=== PATIENT | female | born 1980 | race Caucasian/White ===

== ENCOUNTER 2019-12-31 08:32 | Inpatient (IN) ==
[2019-12-31] MEDS ORDERED: OXYTOCIN 30 UNITS/500 ML BAG IV PRN ×2 (13:13)
[2019-12-31] MEDS ORDERED: PENICILLIN G POTASSIUM 6 MU in DEXTROSE 5% 250 ML IV STA (13:17)
[2019-12-31] MEDS: LACTATED RINGER'S 1,000 ML IV PRN ×2 (13:38→20:21)
--- NOTE | 2019-12-31 13:38 | History & Physical Report ---
Date of Service December 31, 2019 Assessment & Plan (1) Elective induction of labor planned: Plan pitocin induction. arom when indicated. epidural on demand. Fetus category one. Anticipate . History of Present Illness Primary Care Provider: Priya Ramirez DO Patient is a 39yowf with iup at 40 6/7 weeks who presents to labor and delivery for scheduled induction. Patient had nettles bulb placed last night and it fell out this am. Has noted some cramping but nothing more than that. +mucous d/c. no vb. +fm. complicated by ama. Declined genetic testing. echo normal. nsts reactive. labs--A+/ab-/ri/rprnr/hepb-/hiv-/gc/ct-/ 16 week gtt 139/ 16 and 28 week 2 hr gtt nl/gbs positive. Allergies Allergy/AdvReac Type Severity Reaction Status Date / Time mushroom Allergy Mild Gastrointestinal Verified 12/30/19 19:43 Upset Home Medications Home Medications Medication Instructions Recorded Confirmed Type prenat.vits,lukas,jzf-vbow-asyuc 1 tab PO DAILY 05/16/19 12/30/19 History Patient History Medical History Abnormal biochemical finding on screening of mother Supernumerary nipple (Resolved) Varicella Surgical History History of umbilical hernia repair Family History Grandmother (Maternal) Thyroid disease Sister Heart valve disorder Aunt Lazy eye Family/Other Lazy eye Social History Preferred Language: Montenegrin marital status: marital status details: Vincent Gonzalez (35) [phone] Current Living Situation: Spouse Current Living Situation Comment: no pets current occupational status: employed current occupation: bookeeper Feels Safe at Home: Yes Smoking Status: Former smoker Hx Alcohol Use: No Hx Substance Use: No OB History g1--present 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 no stds, no abnl paps Review of Systems All systems reviewed & are unremarkable except as noted in HPI & below Physical Exam Constitutional: WD/WN, vitals as above Gastrointestinal (Abdomen): soft, gravid, nt Psychiatric: A+Ox3, euthymic affect Genitourinary: 4+/50/-2/mid/soft efw--8-9# toco--pau efm--130s with mod variability, accels present, no decels Results & Data Vital Signs (Past 12 Hours) Vital Signs Temp Pulse Resp BP 12/31/19 13:11 36.7 C 92 H 20 119/70 Code Status & VTE Plan VTE Prophylaxis Plan VTE Prophylaxis will be ordered: No Coding Level of Care Code None Diagnoses Elective induction of labor planned
[2019-12-31 13:51] LABS: Hematocrit (blood only) 38.1 % (37-47); Hemoglobin 12.4 g/dL (12.0-16.0); Mean Corpuscular Hemoglobin 29.1 pg (25-34); Mean Corpuscular Volume 89.4 fL (80-100); Mean Platelet Volume 10.4 fL (7.4-10.4); Platelet Count 271 K/uL (130-400); RDW Coefficient of Variation 14.7 % (11.5-14.5); RDW Standard Deviation 48.1 fL (36.4-46.3); Red Blood Count 4.26 M/uL (4.2-5.4); White Blood Count 11.43 K/uL (4.8-10.8)
[2019-12-31 14:02] LABS: Mean Corpuscular Hgb Conc 32.5 g/dL (32-36)
--- NOTE | 2019-12-31 17:13 | Labor Progress Brief Note ---
Date of Service December 31, 2019 Subjective Patient noting contractions but not uncomfortable. Assessment & Plan (1) Elective induction of labor planned: arom done, continue current management. fetus category one. epidural on demand. Physical Exam Constitutional: WD/WN, vitals as above Psychiatric: A+Ox3, euthymic affect Genitourinary: cx--4.5/75/-2 arom--minimal clear toco--q 2-3min, pit at 12 efm--130s with mod variability, accels to 160s , no decels Results & Data Vital Signs (Past 12 Hours) Vital Signs Temp Pulse Resp BP 12/31/19 16:42 68 125/79 12/31/19 15:20 85 20 123/81 12/31/19 14:18 36.7 C 97 H 20 111/82 12/31/19 14:15 97 H 111/82 12/31/19 13:11 36.7 C 92 H 20 119/70 Coding Level of Care Code None Diagnoses Elective induction of labor planned
[2019-12-31] MEDS: PENICILLIN G POTASSIUM 3 MU in DEXTROSE 5% 100 ML IV PRN ×2 (17:45→21:44)
[2019-12-31] MEDS ORDERED: fentaNYL citrate 100 MCG/2 ML VIAL ONE (18:26)
[2019-12-31] MEDS ORDERED: ePHEDrine sulfate 50 MG/ML AMP ONE (18:26)
[2019-12-31] MEDS ORDERED: BUPIVACAINE 0.25% 30 ML VIAL ONE ×2 (18:26→20:14)
[2019-12-31] MEDS ORDERED: fentaNYL 2MCG/ML ROPIV 1.25MG/ML 100 ML BAG EPI ONE (18:27)
[2019-12-31] MEDS ORDERED: NALBUPHINE HCL INJ 10 MG/ML AMP IV PRN (18:38)
[2019-12-31] MEDS ORDERED: NALOXONE HCL 0.4 MG/1 ML VIAL/CARP IV PRN (18:38)
[2019-12-31] MEDS ORDERED: DiphenhydrAMINE HCL 50 MG/ML VIAL IV PRN (18:38)
[2019-12-31] MEDS ORDERED: NALOXONE HCL 1 MG in SODIUM CHLORIDE 0.9% 1000ML 1,000 ML IV PRN (18:38)
[2019-12-31] MEDS ORDERED: fentaNYL 2MCG/ML ROPIV 1.25MG/ML 100 ML BAG EPI PRN (18:38)
[2019-12-31] MEDS ORDERED: ePHEDrine sulfate 50 MG/ML AMP IV PRN (18:38)
[2019-12-31] MEDS ORDERED: ONDANSETRON INJ 2 MG/ML 2 ML VIAL IV PRN (18:38)
--- NOTE | 2019-12-31 18:42 | Anesthesiology Consultation ---
Date of Service December 31, 2019 Assessment & Plan (1) Encounter for pre-operative examination: Chart Review Chart Review: Patient NOT seen in Pre Admission Testing and Acceptable Risk for Labor Epidural Consults Requested none History Height/Weight Height: 5 ft 9 in Weight: 110.677 kg Allergies Allergy/AdvReac Type Severity Reaction Status Date / Time mushroom Allergy Mild Gastrointestinal Verified 12/30/19 19:43 Upset Medications Home Medications Medication Instructions Recorded Confirmed Last Taken prenat.vits,lukas,bpz-rolu-vurmr 1 tab PO DAILY 05/16/19 12/30/19 12/30/19 08:00 Active Medications Generic Name Dose Route Start Last Admin Trade Name Freq PRN Reason Stop Dose Admin Lactated Ringer's 1,000 mls @ 125 mls/hr 12/31/19 13:13 12/31/19 18:30 Lr IV 01/02/20 13:12 999 mls/hr .Q8H PRN Titration L&D Protocol Protocol Penicillin G Potassium 3 mu/ 106 mls @ 100 mls/hr 12/31/19 13:13 12/31/19 17:45 Dextrose IV 01/10/20 13:12 100 mls/hr Q4H PRN Administration Give until delivery Oxytocin 30 units in 500 mls @ 12 mls/hr 12/31/19 13:13 12/31/19 16:40 Pitocin IV 01/02/20 13:12 0.72 units/hr .Q24H PRN 12 mls/hr Labor Induction/Augmentation Titration Protocol 0.72 UNITS/HR Past Medical History Medical History Abnormal biochemical finding on screening of mother Supernumerary nipple (Resolved) Varicella Exercise / Class Metabolic Activity II 4-5 Yardwork/Stairs/Walk up hill Past Family History Family History Grandmother (Maternal) Thyroid disease Sister Heart valve disorder Aunt Lazy eye Family/Other Lazy eye Past Surgical History Surgical History History of umbilical hernia repair Past Anesthesia History No Hx of Anesthesia Complications and No Family Hx of Anesthesia Complications History of PONV No Hx of PONV and No Hx of Motion Sickness Social History Smoking Status: Former smoker Do You Dip or Chew Tobacco: No Smoking End Date: 09-20-2008 Hx Alcohol Use: No Hx Substance Use: No Physical Exam Vital Signs Last Vital Signs Temp 36.7 C 12/31/19 18:41 Pulse 72 12/31/19 18:40 Resp 22 12/31/19 18:41 BP 138/83 12/31/19 18:40 Testing Laboratory Results 12/31/19 13:23
--- NOTE | 2019-12-31 20:08 | Labor Progress Brief Note ---
Date of Service December 31, 2019 Subjective Notes contractions are still painful despite epidural Assessment & Plan (1) Elective induction of labor planned: iupc placed with goal of 200mvus. fetus category one. will get anesthesia to check epidural. Continue pitocin. Physical Exam Constitutional: WD/WN, vitals as above Psychiatric: A+Ox3, euthymic affect Genitourinary: cx--unchanged toco--q2min, pit at 12 efm--120s with mod variability, small accels, no decels Results & Data Vital Signs (Past 12 Hours) Vital Signs Temp Pulse Resp BP Pulse Ox 12/31/19 20:06 74 94 12/31/19 20:02 76 96 12/31/19 19:57 61 95 12/31/19 19:55 58 L 147/89 H 12/31/19 19:52 65 96 12/31/19 19:51 67 93 12/31/19 19:47 62 95 12/31/19 19:44 66 94 12/31/19 19:42 67 95 12/31/19 19:40 18 12/31/19 19:37 71 94 12/31/19 19:36 70 132/77 93 12/31/19 19:32 74 145/85 H 94 12/31/19 19:30 71 18 94 12/31/19 19:27 64 96 12/31/19 19:26 63 143/83 H 12/31/19 19:24 67 146/82 H 94 12/31/19 19:22 36.8 C 71 18 135/78 94 12/31/19 19:19 68 132/79 94 12/31/19 19:18 67 139/81 12/31/19 19:17 65 97 12/31/19 19:16 63 145/89 H 12/31/19 19:14 61 132/82 12/31/19 19:13 68 94 12/31/19 19:12 67 139/82 95 12/31/19 19:10 67 145/86 H 12/31/19 19:08 63 136/82 12/31/19 19:07 64 98 12/31/19 19:05 68 141/84 H 12/31/19 19:03 68 139/79 12/31/19 19:02 87 92 12/31/19 18:57 71 97 12/31/19 18:52 85 97 04/13/20 18:47 73 99 12/31/19 18:42 71 100 12/31/19 18:41 36.7 C 22 12/31/19 18:40 72 138/83 12/31/19 17:49 66 20 147/79 H 12/31/19 16:42 68 125/79 12/31/19 15:20 85 20 123/81 12/31/19 14:18 36.7 C 97 H 20 111/82 12/31/19 14:15 97 H 111/82 12/31/19 13:11 36.7 C 92 H 20 119/70 Coding Level of Care Code None Diagnoses Elective induction of labor planned
--- NOTE | 2019-12-31 23:52 | Labor Progress Brief Note ---
Date of Service December 31, 2019 Subjective comfortable with new epidural. Feels some pressure with contractions. Assessment & Plan (1) Elective induction of labor planned: continue current plan. fetus overall reassuring Category two. Physical Exam Constitutional: WD/WN, vitals as above Gastrointestinal (Abdomen): gravid Psychiatric: A+Ox3, euthymic affect Genitourinary: cx--5/100/-1 toco--q2-3min, pit at 14, mvus have been >200 since iupc placed efm--125 with mod variability, small accels, variable/early with some contractions Results & Data Vital Signs (Past 12 Hours) Vital Signs Temp Pulse Resp BP Pulse Ox 12/31/19 23:47 73 95 12/31/19 23:43 72 93 12/31/19 23:42 83 95 12/31/19 23:37 73 91 12/31/19 23:34 70 117/57 L 12/31/19 23:32 75 93 12/31/19 23:27 83 93 12/31/19 23:22 80 93 12/31/19 23:19 73 94 12/31/19 23:18 77 109/60 12/31/19 23:17 73 93 12/31/19 23:13 73 94 12/31/19 23:12 77 93 12/31/19 23:07 82 93 12/31/19 23:03 90 135/72 94 12/31/19 23:02 83 93 12/31/19 23:00 36.9 C 18 12/31/19 22:57 83 93 12/31/19 22:52 63 91 12/31/19 22:49 65 97/54 L 12/31/19 22:47 70 92 12/31/19 22:42 61 92 12/31/19 22:37 81 92 12/31/19 22:33 70 100/56 L 12/31/19 22:32 83 91 12/31/19 22:27 64 93 12/31/19 22:22 79 92 12/31/19 22:19 66 109/55 L 12/31/19 22:18 66 94 12/31/19 22:17 67 93 12/31/19 22:12 65 93 12/31/19 22:08 70 94 12/31/19 22:07 68 93 12/31/19 22:04 63 120/58 L 12/31/19 22:03 70 94 12/31/19 22:02 84 93 12/31/19 21:57 65 93 12/31/19 21:54 65 94 12/31/19 21:52 69 96 12/31/19 21:49 68 110/53 L 12/31/19 21:47 71 95 12/31/19 21:42 74 97 12/31/19 21:37 67 95 12/31/19 21:34 68 120/57 L 12/31/19 21:32 65 96 12/31/19 21:27 67 95 12/31/19 21:22 72 96 12/31/19 21:17 87 96 12/31/19 21:16 16 12/31/19 21:12 78 95 12/31/19 21:10 82 20 118/59 L 12/31/19 21:07 36.8 C 73 18 94 12/31/19 21:06 78 18 119/55 L 12/31/19 21:03 77 92 12/31/19 21:02 81 98 12/31/19 21:01 86 135/79 12/31/19 20:57 86 92 12/31/19 20:52 79 93 12/31/19 20:51 77 20 149/68 H 12/31/19 20:47 76 94 12/31/19 20:45 67 20 132/78 12/31/19 20:42 72 96 12/31/19 20:41 75 94 12/31/19 20:39 78 128/64 12/31/19 20:37 77 141/66 H 96 12/31/19 20:35 71 147/75 H 12/31/19 20:33 78 18 157/73 H 12/31/19 20:32 66 95 12/31/19 20:31 70 129/79 12/31/19 20:29 71 131/83 12/31/19 20:28 69 94 12/31/19 20:27 69 129/81 96 12/31/19 20:25 71 139/85 12/31/19 20:23 66 149/92 H 94 12/31/19 20:22 70 94 12/31/19 20:21 67 22 150/91 H 12/31/19 20:19 71 144/91 H 12/31/19 20:17 65 97 12/31/19 20:12 64 97 12/31/19 20:08 68 135/79 12/31/19 20:07 66 95 12/31/19 20:06 74 94 12/31/19 20:02 76 96 12/31/19 19:57 61 95 12/31/19 19:55 58 L 147/89 H 12/31/19 19:52 65 96 12/31/19 19:51 67 93 12/31/19 19:47 62 95 12/31/19 19:44 66 94 12/31/19 19:42 67 95 12/31/19 19:40 18 12/31/19 19:37 71 94 12/31/19 19:36 70 132/77 93 12/31/19 19:32 74 145/85 H 94 12/31/19 19:30 71 18 94 12/31/19 19:27 64 96 12/31/19 19:26 63 143/83 H 12/31/19 19:24 67 146/82 H 94 12/31/19 19:22 36.8 C 71 18 135/78 94 12/31/19 19:19 68 132/79 94 12/31/19 19:18 67 139/81 12/31/19 19:17 65 97 12/31/19 19:16 63 145/89 H 12/31/19 19:14 61 132/82 12/31/19 19:13 68 94 12/31/19 19:12 67 139/82 95 12/31/19 19:10 67 145/86 H 12/31/19 19:08 63 136/82 12/31/19 19:07 64 98 12/31/19 19:05 68 141/84 H 12/31/19 19:03 68 139/79 12/31/19 19:02 87 92 12/31/19 18:57 71 97 12/31/19 18:52 85 97 12/31/19 18:47 73 99 12/31/19 18:42 71 100 12/31/19 18:41 36.7 C 22 12/31/19 18:40 72 138/83 12/31/19 17:49 66 20 147/79 H 12/31/19 16:42 68 125/79 12/31/19 15:20 85 20 123/81 12/31/19 14:18 36.7 C 97 H 20 111/82 12/31/19 14:15 97 H 111/82 12/31/19 13:11 36.7 C 92 H 20 119/70 Coding Level of Care Code None Diagnoses Elective induction of labor planned
[2020-01-01] MEDS: PENICILLIN G POTASSIUM 3 MU in DEXTROSE 5% 100 ML IV PRN (01:42)
--- NOTE | 2020-01-01 02:11 | Labor Progress Brief Note ---
Date of Service January 01, 2020 Subjective Patient notes she feels some pressure and is very shaky. Assessment & Plan (1) Elective induction of labor planned: Will try to labor down now but if unable to tolerate this because of the shaking. Will attempt. Otherwise can begin second stage. Fetus reassuring. anticipate . Physical Exam Constitutional: WD/WN, vitals as above Psychiatric: A+Ox3, euthymic affect Genitourinary: cx--c/c/0 toco--q 2-3 min, pit at 14 efm--130s with mod variability, accels to 150s, no decels Results & Data Vital Signs (Past 12 Hours) Vital Signs Temp Pulse Resp BP Pulse Ox 01/01/20 02:07 96 H 95 01/01/20 02:03 94 H 144/71 H 01/01/20 02:02 93 H 98 01/01/20 01:57 98 H 98 01/01/20 01:52 100 H 98 01/01/20 01:48 115/59 L 01/01/20 01:47 112 H 98 01/01/20 01:42 81 98 01/01/20 01:37 69 99 01/01/20 01:33 73 110/59 L 01/01/20 01:32 82 97 01/01/20 01:27 66 96 01/01/20 01:22 74 97 01/01/20 01:19 63 115/63 01/01/20 01:17 73 96 01/01/20 01:14 18 01/01/20 01:12 87 96 01/01/20 01:10 62 93 01/01/20 01:07 74 94 01/01/20 01:05 74 94 01/01/20 01:03 76 126/73 01/01/20 01:02 67 95 01/01/20 00:59 97 H 93 01/01/20 00:57 68 94 01/01/20 00:52 78 93 01/01/20 00:50 69 93 01/01/20 00:48 73 128/78 01/01/20 00:47 69 93 01/01/20 00:44 69 94 01/01/20 00:42 36.8 C 71 18 95 01/01/20 00:38 87 94 01/01/20 00:37 78 97 01/01/20 00:33 67 116/71 01/01/20 00:32 67 96 01/01/20 00:30 71 94 01/01/20 00:27 74 95 01/01/20 00:23 79 94 01/01/20 00:22 69 94 01/01/20 00:18 72 122/66 94 01/01/20 00:17 67 96 01/01/20 00:12 75 94 01/01/20 00:07 70 94 01/01/20 00:06 96 H 94 01/01/20 00:03 67 117/58 L 01/01/20 00:02 67 94 12/31/19 23:58 73 94 12/31/19 23:57 74 94 12/31/19 23:52 72 94 12/31/19 23:49 84 118/58 L 94 12/31/19 23:47 73 95 12/31/19 23:43 72 93 12/31/19 23:42 83 95 12/31/19 23:37 73 91 12/31/19 23:34 70 117/57 L 12/31/19 23:32 75 93 12/31/19 23:27 83 93 12/31/19 23:22 80 93 12/31/19 23:19 73 94 12/31/19 23:18 77 109/60 12/31/19 23:17 73 93 12/31/19 23:13 73 94 12/31/19 23:12 77 93 12/31/19 23:07 82 93 12/31/19 23:03 90 135/72 94 12/31/19 23:02 83 93 12/31/19 23:00 36.9 C 18 12/31/19 22:57 83 93 12/31/19 22:52 63 91 12/31/19 22:49 65 97/54 L 12/31/19 22:47 70 92 12/31/19 22:42 61 92 12/31/19 22:37 81 92 12/31/19 22:33 70 100/56 L 12/31/19 22:32 83 91 12/31/19 22:27 64 93 12/31/19 22:22 79 92 12/31/19 22:19 66 109/55 L 12/31/19 22:18 66 94 12/31/19 22:17 67 93 12/31/19 22:12 65 93 12/31/19 22:08 70 94 12/31/19 22:07 68 93 12/31/19 22:04 63 120/58 L 12/31/19 22:03 70 94 12/31/19 22:02 84 93 12/31/19 21:57 65 93 12/31/19 21:54 65 94 12/31/19 21:52 69 96 12/31/19 21:49 68 110/53 L 12/31/19 21:47 71 95 12/31/19 21:42 74 97 12/31/19 21:37 67 95 12/31/19 21:34 68 120/57 L 12/31/19 21:32 65 96 12/31/19 21:27 67 95 12/31/19 21:22 72 96 12/31/19 21:17 87 96 12/31/19 21:16 16 12/31/19 21:12 78 95 12/31/19 21:10 82 20 118/59 L 12/31/19 21:07 36.8 C 73 18 94 12/31/19 21:06 78 18 119/55 L 12/31/19 21:03 77 92 12/31/19 21:02 81 98 12/31/19 21:01 86 135/79 12/31/19 20:57 86 92 12/31/19 20:52 79 93 12/31/19 20:51 77 20 149/68 H 12/31/19 20:47 76 94 12/31/19 20:45 67 20 132/78 12/31/19 20:42 72 96 12/31/19 20:41 75 94 12/31/19 20:39 78 128/64 12/31/19 20:37 77 141/66 H 96 12/31/19 20:35 71 147/75 H 12/31/19 20:33 78 18 157/73 H 12/31/19 20:32 66 95 12/31/19 20:31 70 129/79 12/31/19 20:29 71 131/83 12/31/19 20:28 69 94 12/31/19 20:27 69 129/81 96 12/31/19 20:25 71 139/85 12/31/19 20:23 66 149/92 H 94 12/31/19 20:22 70 94 0413/20 20:21 67 22 150/91 H 12/31/19 20:19 71 144/91 H 12/31/19 20:17 65 97 12/31/19 20:12 64 97 12/31/19 20:08 68 135/79 12/31/19 20:07 66 95 12/31/19 20:06 74 94 12/31/19 20:02 76 96 12/31/19 19:57 61 95 12/31/19 19:55 58 L 147/89 H 12/31/19 19:52 65 96 12/31/19 19:51 67 93 12/31/19 19:47 62 95 12/31/19 19:44 66 94 12/31/19 19:42 67 95 12/31/19 19:40 18 12/31/19 19:37 71 94 12/31/19 19:36 70 132/77 93 12/31/19 19:32 74 145/85 H 94 12/31/19 19:30 71 18 94 12/31/19 19:27 64 96 12/31/19 19:26 63 143/83 H 12/31/19 19:24 67 146/82 H 94 12/31/19 19:22 36.8 C 71 18 135/78 94 12/31/19 19:19 68 132/79 94 12/31/19 19:18 67 139/81 12/31/19 19:17 65 97 12/31/19 19:16 63 145/89 H 12/31/19 19:14 61 132/82 12/31/19 19:13 68 94 12/31/19 19:12 67 139/82 95 12/31/19 19:10 67 145/86 H 12/31/19 19:08 63 136/82 12/31/19 19:07 64 98 12/31/19 19:05 68 141/84 H 12/31/19 19:03 68 139/79 12/31/19 19:02 87 92 12/31/19 18:57 71 97 12/31/19 18:52 85 97 12/31/19 18:47 73 99 12/31/19 18:42 71 100 12/31/19 18:41 36.7 C 22 12/31/19 18:40 72 138/83 12/31/19 17:49 66 20 147/79 H 12/31/19 16:42 68 125/79 12/31/19 15:20 85 20 123/81 12/31/19 14:18 36.7 C 97 H 20 111/82 12/31/19 14:15 97 H 111/82 Coding Level of Care Code None Diagnoses Elective induction of labor planned
--- NOTE | 2020-01-01 05:19 | Delivery Summary ---
Vaginal Delivery Summary Date of Service January 01, 2020 Pre-operative Diagnosis: at 41 weeks postdates induction Post-operative Diagnosis: same Procedure: pitocin induction arom iupc first degree laceration and repair EBL: 400cc Anesthesia: epidural Procedure: The patient pushed for about one hour to deliver a viable female infant in DOP position. The nose and mouth were bulb suctioned on the perineum and the rest of the was then delivered without difficulty. The baby was vigorous. The nose and mouth were again bulb suctioned and the was placed in the maternal abdomen for drying and attention. Cord was clamped and cut at 30 secs of life. Cord blood obtained for public collection. Placenta delivered spontaneous, intact with a three vessel cord. Cervix/sulci/rectum were intact. A first degree perineal laceration was repaired in the normal standard fashion. Hemostasis obtained with dilute pitocin and fundal massage. Apgars were 8/9. Mother and baby doing well at the end of the delivery. [facility] Vaginal Delivery Charge Vaginal Delivery Codes: 48976 global code for the antepartum, delivery, and post- (also cord blood for public collection)
[2020-01-01] MEDS ORDERED: ACETAMINOPHEN W/CODEINE #3 1 TAB PO PRN (05:22)
[2020-01-01] MEDS ORDERED: ACETAMINOPHEN 325 MG TAB PO PRN (05:22)
[2020-01-01] MEDS ORDERED: OXYTOCIN 30 UNITS/500 ML BAG IV PRN (05:33)
[2020-01-01] MEDS ORDERED: DIPHTHERIA/TETANUS/PERTUSSIS 0.5 ML SYR/VIAL IM ONE (05:33)
[2020-01-01] MEDS ORDERED: BENZOCAINE 20% AER SPR 82.5 GM CAN EXT PRN (05:33)
[2020-01-01] MEDS ORDERED: HYDROCORTISONE ACETATE 25 MG SUPP PR PRN (05:33)
[2020-01-01] MEDS ORDERED: SUPERCREAM 0.870% 15 GM JAR EXT PRN (05:33)
--- NOTE | 2020-01-01 07:44 | Anesthesia Procedure Note ---
Date of Service January 01, 2020 Anesthesia Post Epidural Note Vital Signs Vital Signs: Temp Pulse Resp BP Pulse Ox 36.7 C 97 H 20 122/67 92 01/01/20 07:10 01/01/20 07:09 01/01/20 07:10 01/01/20 07:09 01/01/20 05:18 Pain Intensity Abdomen: Pain Intensity: 9 Notes Mental Status: alert / awake / arousable Nausea / Vomiting: adequately controlled Pain: adequately controlled Airway Patency, RR, SpO2: stable & adequate BP & HR: stable & adequate Hydration State: stable & adequate Neuraxial Anesthesia: was administered and sensory block is resolving Anesthetic Complications: no major complications apparent and Pt Satisfied with anesthetic care Epidural: Removed without complications and With tip intact
[2020-01-01] MEDS: PRENATAL VITAMIN 1 TAB PO SCH (08:29)
[2020-01-01] MEDS: DOCUSATE SODIUM 100 MG CAP PO SCH ×2 (08:29→19:57)
[2020-01-01] MEDS: IBUPROFEN 600 MG TAB PO PRN ×2 (09:32→19:57)
[2020-01-02 06:56] LABS: Hematocrit (blood only) 33.8 % (37-47); Hemoglobin 10.6 g/dL (12.0-16.0)
--- NOTE | 2020-01-02 07:34 | Obstetrical Progress Note ---
Date of Service January 02, 2020 Assessment & Plan (1) Encounter for care and examination after delivery: satisfactory course would like to be discharged today if baby discharged Day #:: 1 Subjective Ambulation: ambulating normally Voiding: no voiding problems Passing Gas:: Yes Diet Tolerance:: regular diet Lochia:: Moderate Feeding Type:: breast feeding some cramping relieved with motrin Review of Systems All systems reviewed & are unremarkable except as noted in HPI & below Physical Exam Constitutional WD/WN, vitals as above Psychiatric A+Ox3, euthymic affect Genitourinary OB Exam Abdomen: + fundal height Fundus: + firm and + relation to umbilicus (at 1 below U) Results & Data Vital Signs (Past 12 Hours) Vital Signs Temp Pulse Resp BP Pulse Ox 01/02/20 05:10 97.5 F L 76 18 113/77 01/02/20 00:30 98.1 F 80 18 97/63 L 01/01/20 19:50 97.7 F 93 H 18 129/81 97
[2020-01-02] MEDS: PRENATAL VITAMIN 1 TAB PO SCH (08:39)
[2020-01-02] MEDS: DOCUSATE SODIUM 100 MG CAP PO SCH ×2 (08:39→20:46)
[2020-01-02] MEDS: IBUPROFEN 600 MG TAB PO PRN ×2 (15:46→20:47)
[2020-01-02] MEDS ORDERED: bisacodyL 5 MG TABEC PO SCH (20:00)
[2020-01-03] MEDS ORDERED: bisacodyL 10 MG SUPP PR PRN (07:00)
[2020-01-03] MEDS: PRENATAL VITAMIN 1 TAB PO SCH (07:35)
[2020-01-03] MEDS: DOCUSATE SODIUM 100 MG CAP PO SCH (07:35)
[2020-01-03] MEDS: IBUPROFEN 600 MG TAB PO PRN (07:35)
--- NOTE | 2020-01-03 07:42 | Obstetrical Progress Note ---
Date of Service January 03, 2020 Assessment & Plan (1) Encounter for care and examination after delivery: PPD#2 doing well. No concerns. Discharge home. Reviewed instructions. RTO 6w. Subjective Ambulation: ambulating normally Voiding: no voiding problems Diet Tolerance:: regular diet Lochia:: Moderate Feeding Type:: breast feeding Review of Systems All systems reviewed & are unremarkable except as noted in HPI & below Physical Exam Constitutional WD/WN, vitals as above no acute distress Respiratory normal respiratory effort Cardiovascular Rate/Rhythm: regular rate and regular rhythm Gastrointestinal (Abdomen) Inspection/Auscultation: abdomen normal to inspection; abdomen not distended Percussion/Palpation: abdomen soft Genitourinary OB Exam Abdomen: + fundal height Fundus: + firm; not tender Results & Data Vital Signs (Past 12 Hours) Vital Signs Temp Pulse Resp BP Pulse Ox 01/02/20 23:10 36.6 C 64 16 128/80 96
== END 2020-01-03 13:00 | disposition home or self-care (01) | DRG 807 ==
LOC: 4S1 13:01 → 4S2 01-01 10:32

== ENCOUNTER 2022-02-11 08:07 | Inpatient (IN) ==
[2022-02-11] MEDS ORDERED: OXYTOCIN 30 UNITS/500 ML BAG IV PRN ×2 (08:17→08:19)
[2022-02-11] MEDS ORDERED: PENICILLIN G POTASSIUM 6 MU in DEXTROSE 5% 250 ML IV STA (08:23)
[2022-02-11 08:43] LABS: Hematocrit (blood only) 37.9 % (37-47); Hemoglobin 12.3 g/dL (12.0-16.0); Mean Corpuscular Hemoglobin 29.3 pg (25-34); Mean Corpuscular Hgb Conc 32.5 g/dL (32-36); Mean Corpuscular Volume 90.2 fL (80-100); Mean Platelet Volume 10.3 fL (7.4-10.4); Platelet Count 232 K/uL (130-400); RDW Coefficient of Variation 15.2 % (11.5-14.5); RDW Standard Deviation 49.7 fL (36.4-46.3); White Blood Count 7.51 K/uL (4.8-10.8)
[2022-02-11] MEDS: LACTATED RINGER'S 1,000 ML IV PRN ×3 (09:06→17:02)
[2022-02-11] MEDS: PENICILLIN G POTASSIUM 3 MU in DEXTROSE 5% 100 ML IV PRN ×3 (13:25→21:27)
[2022-02-11] MEDS ORDERED: ePHEDrine sulfate 50 MG/ML AMP ONE (13:49)
[2022-02-11] MEDS ORDERED: fentaNYL citrate 100 MCG/2 ML VIAL ONE ×2 (13:49→16:34)
[2022-02-11] MEDS ORDERED: BUPIVACAINE 0.25% 30 ML VIAL ONE ×2 (13:49→16:34)
[2022-02-11] MEDS ORDERED: fentaNYL 2MCG/ML ROPIVACAINE 1.25MG/ML 100 ML BAG EPI ONE (13:49)
[2022-02-11] MEDS ORDERED: SODIUM CHLORIDE 0.9% INJ 10 ML VIAL ONE (13:49)
[2022-02-11] MEDS ORDERED: NALOXONE HCL 1 MG in SODIUM CHLORIDE 0.9% 1000ML 1,000 ML IV PRN (14:06)
[2022-02-11] MEDS ORDERED: NALBUPHINE HCL INJ 10 MG/ML AMP IV PRN (14:06)
[2022-02-11] MEDS ORDERED: diphenhydrAMINE 50 MG/ML VIAL IV PRN (14:06)
[2022-02-11] MEDS ORDERED: fentaNYL 2MCG/ML ROPIVACAINE 1.25MG/ML 100 ML BAG EPI PRN (14:06)
[2022-02-11] MEDS ORDERED: ONDANSETRON INJ 2 MG/ML 2 ML VIAL IV PRN (14:06)
[2022-02-11] MEDS ORDERED: NALOXONE HCL 0.4 MG/1 ML VIAL/CARP IV PRN (14:06)
[2022-02-11] MEDS ORDERED: ePHEDrine sulfate 50 MG/ML AMP IV PRN (14:06)
--- NOTE | 2022-02-11 14:06 | Anesthesiology Consultation ---
Date of Service February 11, 2022 Assessment & Plan ASA ASA3 Proposed Anesthesia Anesthesia Type: Labor Epidural Risk / Benefits Reviewed With: PT / POA / Parent / Guardian, Accepts Plan and Informed Consent Obtained History Height/Weight Height: 5 ft 9 in Weight: 108.409 kg Allergies Allergy/AdvReac Type Severity Reaction Status Date / Time mushroom Allergy Mild Gastrointestinal Verified 02/11/22 09:17 Upset benzocaine Allergy Hives Verified 02/11/22 09:18 ibuprofen AdvReac angioedema Verified 02/11/22 09:17 Medications Home Medications Medication Instructions Recorded Confirmed Last Taken prenat.vits,lukas,rpj-qolm-omlzn 1 tab PO DAILY 05/16/19 02/11/22 12/30/19 08:00 acetone (urine) test (Ketone Urine #50 10/05/21 02/10/22 Unknown Test) blood sugar diagnostic (OneTouch #150 10/05/21 02/10/22 Unknown Verio test strips) blood-glucose meter (OneTouch #1 10/05/21 02/10/22 Unknown Verio Reflect Meter) lancets 33 gauge (OneTouch Delica #150 10/05/21 02/10/22 Unknown Plus Lancet) insulin syringe-needle U-100 0.3 #100 01/01/22 02/10/22 Unknown mL 29 gauge x 1/2" (BD Insulin Syringe) pen needle, diabetic 32 gauge x #100 01/01/22 02/10/22 Unknown 5/32" (BD Ultra-Fine Keily Pen Needle) docusate sodium 100 mg capsule 100 mg PO TID cap 01/28/22 02/11/22 Unknown (Colace) loratadine 10 mg tablet 10 mg PO DAILY 01/28/22 02/11/22 Unknown insulin NPH isoph U-100 human 100 30 unit SUBCUT QPM 02/11/22 02/11/22 02/10/22 21:00 unit/mL (3 mL) subcutaneous pen (Novolin N Flexpen) Active Medications Generic Name Dose Route Start Last Admin Trade Name Freq PRN Reason Stop Dose Admin Lactated Ringer's 1,000 mls @ 125 mls/hr 02/11/22 08:17 02/11/22 14:55 Lr IV 02/13/22 08:16 Infused .Q8H PRN Titration L&D Protocol Protocol Penicillin G Potassium 3 mu/ 106 mls @ 100 mls/hr 02/11/22 11:17 02/11/22 15:04 Dextrose IV 02/21/22 11:16 Infused Q4H PRN Titration GBS(+) Until Delivery Oxytocin 30 units in 500 mls @ 13 mls/hr 02/11/22 08:19 02/11/22 15:30 Pitocin IV 02/13/22 08:18 0.9 units/hr .Q24H PRN 15 mls/hr Labor Induction/Augmentation Titration Protocol 0.78 UNITS/HR Past Medical History Medical History Abnormal biochemical finding on screening of mother Supernumerary nipple Varicella Vulvitis Exercise / Class Metabolic Activity II 4-5 Yardwork/Stairs/Walk up hill Past Family History Family History (Updated 07/14/21 @ 11:23 by Sosa Tang RN) Grandmother (Maternal) Thyroid disease Lung disease Sister Heart valve disorder Aunt Lazy eye Family/Other Lazy eye Grandmother (Paternal) Lung disease Denies family history of Ovarian cancer Prostate cancer Breast cancer Colorectal cancer Past Surgical History Surgical History History of umbilical hernia repair Past Anesthesia History No Hx of Anesthesia Complications and No Family Hx of Anesthesia Complications History of PONV No Hx of PONV and No Hx of Motion Sickness Social History Smoking Status: Former smoker Smoking End Date: 15 years ago Hx Alcohol Use: No Hx Substance Use: No substance use type: does not use Review of Systems denies fever/cough/ colds/ chest pain/ SOB/ ROSARIO denies ROSARIO Physical Exam Vital Signs Last Vital Signs Temp 36.7 C 02/11/22 11:01 Pulse 74 02/11/22 15:27 Resp 20 02/11/22 15:08 BP 123/69 02/11/22 15:23 Pulse Ox 96 02/11/22 15:27 ENMT Mouth: no TMJ abnormality and no dentition abnormality Thyromental Distance: > or= 3.5 Finger Breadths Mallampati Class: II Neck neck extension not limited Respiratory normal respiratory effort; no respiratory distress Auscultation: lungs clear to auscultation bilaterally Cardiovascular Rate/Rhythm: regular rate and regular rhythm Neurologic moves all extremities Psychiatric Orientation: alert and oriented x 3 Testing Laboratory Results 02/11/22 08:34 02/11/22 02/11/22 13:23 09:00 POC Glucose 82 91
--- NOTE | 2022-02-11 16:36 | Communication Note ---
Date of Service: February 11, 2022 The patient has had two epidurals placed by Dr. Velázquez. She is currently dilated 3 cm and has had minimal pain relief. I will pull the epidural and place a CSE.
[2022-02-11] MEDS ORDERED: CALCIUM CARBONATE 500 MG CHEWABLE TAB PO PRN (21:40)
--- NOTE | 2022-02-11 22:55 | Delivery Summary ---
Vaginal Delivery Summary Date of Service February 11, 2022 Vaginal Delivery Summary of live vigorous male patient was induced for gestational diabetes on insulin second baby cervical Huang had been placed earlier in the day by myself Pitocin started on IV antibiotics for group B strep patient eventually was comfortable with her epidural artificial rupture membranes and then baby delivered spontaneously in occiput anterior position baby was delivered without any excessive force live vigorous male cord clamped cord blood obtained placenta removed with gentle traction IV Pitocin started small first-degree tear repaired with 3-0 Vicryl Pitocin was increased as uterine tone required sponge and instrument counts correct estimated blood loss 250 mL
[2022-02-12] MEDS ORDERED: OXYTOCIN 30 UNITS/500 ML BAG IV PRN (00:10)
[2022-02-12] MEDS ORDERED: oxyCODONE/ACETAMINOPHEN 5mg/325mg TAB PO PRN (00:10)
[2022-02-12] MEDS ORDERED: HYDROCORTISONE ACETATE 25 MG SUPP PR PRN (00:10)
[2022-02-12] MEDS ORDERED: DIPHTHERIA/TETANUS/PERTUSSIS 0.5 ML SYR/VIAL IM ONE (00:10)
[2022-02-12] MEDS: ACETAMINOPHEN 325 MG TAB PO PRN ×4 (02:06→20:11)
--- NOTE | 2022-02-12 05:08 | Anesthesiology Progress Note ---
Date of Service February 12, 2022 Anesthesia Post Procedure Vital Signs Vital Signs: Temp Pulse Pulse Resp BP BP BP 02/12/22 03:34 36.7 C 75 16 105/68 02/12/22 01:45 36.5 C 81 16 119/74 02/12/22 00:51 73 120/76 02/12/22 00:36 75 120/69 02/12/22 00:25 18 02/12/22 00:21 70 119/61 02/12/22 00:06 71 121/59 L 02/11/22 23:55 18 02/11/22 23:51 76 119/64 02/11/22 23:36 72 126/65 02/11/22 23:35 18 02/11/22 23:21 81 136/70 02/11/22 23:20 36.9 C 18 02/11/22 23:06 80 133/64 02/11/22 23:05 18 02/11/22 23:01 82 133/63 02/11/22 22:50 18 02/11/22 22:48 80 02/11/22 22:43 85 02/11/22 22:38 92 H 02/11/22 22:37 94 H 169/77 H 02/11/22 22:33 85 02/11/22 22:30 18 02/11/22 22:28 80 02/11/22 22:23 87 02/11/22 22:21 82 131/92 02/11/22 22:18 70 02/11/22 22:13 64 02/11/22 22:08 67 02/11/22 22:07 72 127/72 02/11/22 22:03 67 02/11/22 22:00 18 02/11/22 21:58 76 02/11/22 21:53 76 02/11/22 21:51 81 106/59 L 02/11/22 21:48 66 02/11/22 21:43 72 02/11/22 21:38 80 02/11/22 21:37 76 120/57 L 02/11/22 21:33 91 H 02/11/22 21:30 18 02/11/22 21:28 77 02/11/22 21:25 36.7 C 02/11/22 21:23 75 02/11/22 21:22 71 120/66 02/11/22 21:18 72 02/11/22 21:13 66 02/11/22 21:08 65 02/11/22 21:06 69 110/62 02/11/22 21:03 63 02/11/22 21:00 18 02/11/22 20:58 64 02/11/22 20:53 65 02/11/22 20:52 65 122/66 02/11/22 20:48 61 02/11/22 20:43 61 02/11/22 20:38 61 02/11/22 20:36 60 118/68 02/11/22 20:33 63 02/11/22 20:30 18 02/11/22 20:28 72 02/11/22 20:23 71 02/11/22 20:21 65 126/73 02/11/22 20:18 69 02/11/22 20:13 75 02/11/22 20:08 76 02/11/22 20:06 69 120/71 02/11/22 20:03 70 02/11/22 20:00 18 02/11/22 19:58 74 02/11/22 19:53 71 02/11/22 19:52 67 122/73 02/11/22 19:48 72 02/11/22 19:43 67 02/11/22 19:38 71 02/11/22 19:36 67 124/75 02/11/22 19:33 82 02/11/22 19:30 18 02/11/22 19:28 77 02/11/22 19:23 76 02/11/22 19:21 69 125/74 02/11/22 19:18 71 02/11/22 19:13 69 02/11/22 19:12 36.7 C 18 02/11/22 19:08 73 02/11/22 19:06 36.7 C 74 18 129/71 02/11/22 19:03 72 02/11/22 18:58 70 02/11/22 18:53 67 02/11/22 18:51 73 110/68 02/11/22 18:48 73 02/11/22 18:43 70 02/11/22 18:38 67 02/11/22 18:36 65 120/76 02/11/22 18:33 68 05/26/22 18:28 67 02/11/22 18:23 71 02/11/22 18:21 66 114/73 02/11/22 18:18 76 02/11/22 18:13 68 02/11/22 18:08 72 02/11/22 18:07 69 121/73 02/11/22 18:03 62 02/11/22 17:58 65 02/11/22 17:53 75 02/11/22 17:52 67 114/76 02/11/22 17:48 76 02/11/22 17:43 66 02/11/22 17:38 69 122/78 02/11/22 17:33 72 02/11/22 17:28 71 02/11/22 17:23 36.6 C 72 18 02/11/22 17:18 68 02/11/22 17:17 67 119/73 02/11/22 17:13 66 02/11/22 17:12 71 119/73 02/11/22 17:08 71 121/71 02/11/22 17:03 70 02/11/22 17:00 69 115/63 02/11/22 16:58 75 121/59 L 02/11/22 16:56 76 125/71 02/11/22 16:54 72 126/73 02/11/22 16:53 69 02/11/22 16:47 81 02/11/22 16:43 75 135/85 02/11/22 16:42 70 02/11/22 16:37 76 02/11/22 16:32 70 02/11/22 16:28 78 122/77 02/11/22 16:27 74 02/11/22 16:22 70 02/11/22 16:17 67 02/11/22 16:12 68 18 131/75 02/11/22 16:07 75 02/11/22 16:02 71 02/11/22 15:58 69 133/76 02/11/22 15:57 69 02/11/22 15:52 72 02/11/22 15:47 67 02/11/22 15:43 76 120/76 02/11/22 15:42 68 02/11/22 15:37 72 02/11/22 15:32 68 02/11/22 15:29 36.8 C 20 05/26/22 15:27 74 02/11/22 15:23 68 123/69 02/11/22 15:22 72 02/11/22 15:19 69 123/73 02/11/22 15:17 71 02/11/22 15:12 71 02/11/22 15:08 71 20 125/76 02/11/22 15:07 68 02/11/22 15:02 74 02/11/22 15:01 72 135/73 02/11/22 14:59 74 140/73 02/11/22 14:57 70 133/75 02/11/22 14:55 74 131/72 02/11/22 14:52 76 02/11/22 14:47 82 02/11/22 14:42 74 02/11/22 14:40 86 126/71 02/11/22 14:38 77 119/69 02/11/22 14:37 77 02/11/22 14:36 78 122/70 02/11/22 14:34 70 119/67 02/11/22 14:32 73 124/68 02/11/22 14:31 76 126/65 02/11/22 14:27 72 02/11/22 14:22 71 02/11/22 14:17 91 H 02/11/22 14:12 68 02/11/22 14:07 78 02/11/22 13:34 78 132/81 02/11/22 11:01 36.7 C 70 20 125/80 02/11/22 08:30 100 H 118/69 02/11/22 08:17 36.8 C 100 H 20 118/69 Pulse Ox 02/12/22 03:34 96 02/12/22 01:45 97 02/12/22 00:51 02/12/22 00:36 02/12/22 00:25 02/12/22 00:21 02/12/22 00:06 02/11/22 23:55 02/11/22 23:51 02/11/22 23:36 02/11/22 23:35 02/11/22 23:21 02/11/22 23:20 02/11/22 23:06 02/11/22 23:05 02/11/22 23:01 02/11/22 22:50 02/11/22 22:48 96 02/11/22 22:43 95 02/11/22 22:38 98 02/11/22 22:37 02/11/22 22:33 97 02/11/22 22:30 02/11/22 22:28 99 02/11/22 22:23 98 02/11/22 22:21 02/11/22 22:18 97 02/11/22 22:13 96 02/11/22 22:08 98 02/11/22 22:07 02/11/22 22:03 99 02/11/22 22:00 02/11/22 21:58 97 02/11/22 21:53 95 02/11/22 21:51 05 21:48 98 02/11/22 21:43 97 02/11/22 21:38 96 02/11/22 21:37 02/11/22 21:33 96 02/11/22 21:30 02/11/22 21:28 96 02/11/22 21:25 02/11/22 21:23 96 02/11/22 21:22 02/11/22 21:18 94 02/11/22 21:13 92 02/11/22 21:08 93 02/11/22 21:06 02/11/22 21:03 93 02/11/22 21:00 02/11/22 20:58 93 02/11/22 20:53 94 02/11/22 20:52 02/11/22 20:48 94 02/11/22 20:43 94 02/11/22 20:38 97 02/11/22 20:36 02/11/22 20:33 94 02/11/22 20:30 02/11/22 20:28 96 02/11/22 20:23 96 02/11/22 20:21 02/11/22 20:18 98 02/11/22 20:13 97 02/11/22 20:08 97 02/11/22 20:06 02/11/22 20:03 97 02/11/22 20:00 02/11/22 19:58 96 02/11/22 19:53 96 02/11/22 19:52 05 19:48 97 02/11/22 19:43 98 05 19:38 96 02/11/22 19:36 05 19:33 98 05/26/22 19:30 02/11/22 19:28 96 02/11/22 19:23 97 02/11/22 19:21 02/11/22 19:18 98 02/11/22 19:13 97 02/11/22 19:12 02/11/22 19:08 97 02/11/22 19:06 02/11/22 19:03 98 02/11/22 18:58 96 02/11/22 18:53 96 02/11/22 18:51 05 18:48 97 02/11/22 18:43 97 02/11/22 18:38 97 02/11/22 18:36 02/11/22 18:33 97 02/11/22 18:28 96 02/11/22 18:23 96 02/11/22 18:21 02/11/22 18:18 97 02/11/22 18:13 95 02/11/22 18:08 98 02/11/22 18:07 02/11/22 18:03 96 02/11/22 17:58 96 02/11/22 17:53 95 02/11/22 17:52 02/11/22 17:48 96 02/11/22 17:43 95 02/11/22 17:38 96 02/11/22 17:33 96 02/11/22 17:28 96 02/11/22 17:23 97 02/11/22 17:18 95 02/11/22 17:17 02/11/22 17:13 97 02/11/22 17:12 02/11/22 17:08 96 02/11/22 17:03 95 02/11/22 17:00 02/11/22 16:58 96 02/11/22 16:56 02/11/22 16:54 02/11/22 16:53 96 02/11/22 16:47 98 02/11/22 16:43 02/11/22 16:42 99 02/11/22 16:37 97 02/11/22 16:32 96 02/11/22 16:28 02/11/22 16:27 95 02/11/22 16:22 97 02/11/22 16:17 96 02/11/22 16:12 97 02/11/22 16:07 98 02/11/22 16:02 96 02/11/22 15:58 02/11/22 15:57 97 02/11/22 15:52 97 02/11/22 15:47 96 02/11/22 15:43 02/11/22 15:42 96 02/11/22 15:37 96 02/11/22 15:32 97 02/11/22 15:29 02/11/22 15:27 96 02/11/22 15:23 02/11/22 15:22 97 02/11/22 15:19 02/11/22 15:17 97 02/11/22 15:12 96 02/11/22 15:08 02/11/22 15:07 96 02/11/22 15:02 97 02/11/22 15:01 02/11/22 14:59 02/11/22 14:57 96 02/11/22 14:55 02/11/22 14:52 96 02/11/22 14:47 97 02/11/22 14:42 98 02/11/22 14:40 02/11/22 14:38 02/11/22 14:37 98 02/11/22 14:36 02/11/22 14:34 02/11/22 14:32 99 02/11/22 14:31 02/11/22 14:27 100 02/11/22 14:22 99 02/11/22 14:17 98 02/11/22 14:12 98 02/11/22 14:07 95 02/11/22 13:34 02/11/22 11:01 02/11/22 08:30 02/11/22 08:17 Pain Intensity Bilateral Lower Abdomen: Pain Intensity: 4 Transfer of Care Handoff Completed per policy Notes Mental Status: alert / awake / arousable and participated in evaluation Patient Amnestic to Procedure: Yes Nausea / Vomiting: adequately controlled Pain: adequately controlled Airway Patency, RR, SpO2: stable & adequate BP & HR: stable & adequate Hydration State: stable & adequate Anesthetic Complications: no major complications apparent and Pt Satisfied with anesthetic care
--- NOTE | 2022-02-12 05:40 | Obstetrical Progress Note ---
Date of Service <Bro Arcos MD - Last Filed: 02/12/22 06:56> February 12, 2022 Assessment & Plan <Bro Arcos MD - Last Filed: 02/12/22 06:56> (1) Vaginal delivery: 41 yo , complicated by GDMA2, AMA, now PPD1 from at 39wk 5d -Continue routine care -Vitals reviewed- HDS, afebrile -Blood type A+, GBS+, RI. PCN given intrapartum -Pain control with ibuprofen, acetaminophen PRN -Can replace/remove R arm peripheral IV -Anticipating discharge tomorrow AM <Kristina Murphy MD, FACOG - Last Filed: 02/12/22 07:10> (1) Vaginal delivery: Subjective <Bro Arcos MD - Last Filed: 02/12/22 06:56> Ambulation: ambulating normally Voiding: no voiding problems Passing Gas:: Yes Diet Tolerance:: regular diet Lochia:: Small Feeding Type:: breast feeding Current Pain Level(1-10): 3 Pt doing well overall. Reports some pain around R arm IV site as well as epidural site but pain well controlled with medication. Review of Systems Denies fever/chills. Denies dyspnea, cough. Denies chest pain. Denies breast pain or discharge. Denies dysuria. Denies headache. Denies back pain. Physical Exam <Bro Arcos MD - Last Filed: 02/12/22 06:56> General: Alert, oriented, no acute distress Cardiac: Regular rate and rhythm, normal S1, S2. No murmurs appreciated. Respiratory: Clear to auscultation b/l with good air flow entry, symmetric chest rise and fall. No wheezes or crackles. No increased work of breathing or accesso ry muscle use Abdomen: Soft, nontender, nondistended. Fundus firm and palpable at 2 cm below umbilicus. No guarding or rebound. Skin: No rashes or lesions Extremities: Warm, dry, well-perfused with capillary refill <2s b/l. No lower extremity edema, erythema, swelling or calf tenderness b/l. Results & Data ([facility]) <Bro Arcos MD - Last Filed: 02/12/22 06:56> Vital Signs (Past 12 Hours) Vital Signs Temp Pulse Pulse Resp BP BP BP 02/12/22 03:34 36.7 C 75 16 105/68 02/12/22 01:45 36.5 C 81 16 119/74 02/12/22 00:51 73 120/76 02/12/22 00:36 75 120/69 02/12/22 00:25 18 02/12/22 00:21 70 119/61 02/12/22 00:06 71 121/59 L 02/11/22 23:55 18 02/11/22 23:51 76 119/64 02/11/22 23:36 72 126/65 02/11/22 23:35 18 02/11/22 23:21 81 136/70 02/11/22 23:20 36.9 C 18 02/11/22 23:06 80 133/64 02/11/22 23:05 18 02/11/22 23:01 82 133/63 02/11/22 22:50 18 02/11/22 22:48 80 02/11/22 22:43 85 02/11/22 22:38 92 H 02/11/22 22:37 94 H 169/77 H 02/11/22 22:33 85 02/11/22 22:30 18 02/11/22 22:28 80 02/11/22 22:23 87 02/11/22 22:21 82 131/92 02/11/22 22:18 70 02/11/22 22:13 64 02/11/22 22:08 67 02/11/22 22:07 72 127/72 02/11/22 22:03 67 02/11/22 22:00 18 02/11/22 21:58 76 02/11/22 21:53 76 02/11/22 21:51 81 106/59 L 02/11/22 21:48 66 02/11/22 21:43 72 02/11/22 21:38 80 02/11/22 21:37 76 120/57 L 02/11/22 21:33 91 H 02/11/22 21:30 18 02/11/22 21:28 77 02/11/22 21:25 36.7 C 02/11/22 21:23 75 02/11/22 21:22 71 120/66 02/11/22 21:18 72 02/11/22 21:13 66 02/11/22 21:08 65 02/11/22 21:06 69 110/62 02/11/22 21:03 63 02/11/22 21:00 18 02/11/22 20:58 64 02/11/22 20:53 65 02/11/22 20:52 65 122/66 02/11/22 20:48 61 02/11/22 20:43 61 02/11/22 20:38 61 02/11/22 20:36 60 118/68 02/11/22 20:33 63 02/11/22 20:30 18 02/11/22 20:28 72 02/11/22 20:23 71 02/11/22 20:21 65 126/73 02/11/22 20:18 69 02/11/22 20:13 75 02/11/22 20:08 76 02/11/22 20:06 69 120/71 02/11/22 20:03 70 02/11/22 20:00 18 02/11/22 19:58 74 02/11/22 19:53 71 02/11/22 19:52 67 122/73 02/11/22 19:48 72 02/11/22 19:43 67 02/11/22 19:38 71 02/11/22 19:36 67 124/75 02/11/22 19:33 82 02/11/22 19:30 18 02/11/22 19:28 77 02/11/22 19:23 76 02/11/22 19:21 69 125/74 02/11/22 19:18 71 02/11/22 19:13 69 02/11/22 19:12 36.7 C 18 02/11/22 19:08 73 02/11/22 19:06 36.7 C 74 18 129/71 02/11/22 19:03 72 02/11/22 18:58 70 02/11/22 18:53 67 02/11/22 18:51 73 110/68 02/11/22 18:48 73 02/11/22 18:43 70 02/11/22 18:38 67 02/11/22 18:36 65 120/76 02/11/22 18:33 68 0522 18:28 67 02/11/22 18:23 71 02/11/22 18:21 66 114/73 02/11/22 18:18 76 02/11/22 18:13 68 02/11/22 18:08 72 02/11/22 18:07 69 121/73 02/11/22 18:03 62 02/11/22 17:58 65 02/11/22 17:53 75 02/11/22 17:52 67 114/76 02/11/22 17:48 76 02/11/22 17:43 66 02/11/22 17:38 69 122/78 Pulse Ox 02/12/22 03:34 96 02/12/22 01:45 97 02/12/22 00:51 02/12/22 00:36 02/12/22 00:25 02/12/22 00:21 02/12/22 00:06 02/11/22 23:55 02/11/22 23:51 02/11/22 23:36 02/11/22 23:35 02/11/22 23:21 02/11/22 23:20 02/11/22 23:06 02/11/22 23:05 02/11/22 23:01 02/11/22 22:50 02/11/22 22:48 96 02/11/22 22:43 95 02/11/22 22:38 98 02/11/22 22:37 02/11/22 22:33 97 02/11/22 22:30 02/11/22 22:28 99 02/11/22 22:23 98 02/11/22 22:21 02/11/22 22:18 97 02/11/22 22:13 96 02/11/22 22:08 98 02/11/22 22:07 02/11/22 22:03 99 02/11/22 22:00 02/11/22 21:58 97 02/11/22 21:53 95 02/11/22 21:51 02/11/22 21:48 98 02/11/22 21:43 97 02/11/22 21:38 96 02/11/22 21:37 02/11/22 21:33 96 02/11/22 21:30 02/11/22 21:28 96 02/11/22 21:25 05/26/22 21:23 96 02/11/22 21:22 05 21:18 94 02/11/22 21:13 92 02/11/22 21:08 93 02/11/22 21:06 02/11/22 21:03 93 02/11/22 21:00 02/11/22 20:58 93 02/11/22 20:53 94 02/11/22 20:52 02/11/22 20:48 94 02/11/22 20:43 94 02/11/22 20:38 97 02/11/22 20:36 02/11/22 20:33 94 02/11/22 20:30 02/11/22 20:28 96 02/11/22 20:23 96 02/11/22 20:21 02/11/22 20:18 98 02/11/22 20:13 97 02/11/22 20:08 97 02/11/22 20:06 02/11/22 20:03 97 02/11/22 20:00 02/11/22 19:58 96 02/11/22 19:53 96 02/11/22 19:52 02/11/22 19:48 97 02/11/22 19:43 98 02/11/22 19:38 96 02/11/22 19:36 02/11/22 19:33 98 02/11/22 19:30 02/11/22 19:28 96 02/11/22 19:23 97 02/11/22 19:21 02/11/22 19:18 98 02/11/22 19:13 97 02/11/22 19:12 02/11/22 19:08 97 02/11/22 19:06 02/11/22 19:03 98 02/11/22 18:58 96 02/11/22 18:53 96 02/11/22 18:51 05 18:48 97 02/11/22 18:43 97 02/11/22 18:38 97 02/11/22 18:36 02/11/22 18:33 97 02/11/22 18:28 96 02/11/22 18:23 96 02/11/22 18:21 02/11/22 18:18 97 02/11/22 18:13 95 02/11/22 18:08 98 02/11/22 18:07 02/11/22 18:03 96 02/11/22 17:58 96 02/11/22 17:53 95 02/11/22 17:52 02/11/22 17:48 96 02/11/22 17:43 95 02/11/22 17:38 96 <Kristina Murphy MD, FACOG - Last Filed: 02/12/22 07:10> Co-Signing Physician Notes Resident Physician Supervision Note: I interviewed and examined the patient. Discussed with Dr. Arcos and agree with findings and plan as documented in the note. Any exceptions or clarifications are listed here: [None] Documented By: Kristina Murphy MD, FACOG Resident Activity Tracking <Bro Arcos MD - Last Filed: 02/12/22 06:56> Resident Involvement: Resident Care Provided Care Provided: OB Delivery
[2022-02-12 06:52] LABS: Hematocrit (blood only) 36.3 % (37-47); Hemoglobin 11.6 g/dL (12.0-16.0); Mean Corpuscular Hemoglobin 28.6 pg (25-34); Mean Corpuscular Volume 89.4 fL (80-100); Mean Platelet Volume 10.5 fL (7.4-10.4); Platelet Count 236 K/uL (130-400); RDW Coefficient of Variation 15.3 % (11.5-14.5); RDW Standard Deviation 49.5 fL (36.4-46.3); Red Blood Count 4.06 M/uL (4.2-5.4); White Blood Count 11.44 K/uL (4.8-10.8)
[2022-02-12] MEDS: DOCUSATE SODIUM 100 MG CAP PO SCH ×2 (08:36→20:12)
[2022-02-12] MEDS: PRENATAL VITAMIN 1 TAB PO SCH (08:36)
[2022-02-12] MEDS ORDERED: bisacodyL 5 MG TABEC PO SCH (20:00)
[2022-02-13] MEDS: ACETAMINOPHEN 325 MG TAB PO PRN ×2 (02:36→09:04)
--- NOTE | 2022-02-13 05:51 | Obstetrical Progress Note ---
Date of Service <Bro Arcos MD - Last Filed: 02/13/22 08:20> February 13, 2022 Assessment & Plan <Bro Arcos MD - Last Filed: 02/13/22 08:20> (1) Vaginal delivery: 41 yo , complicated by GDMA2, AMA, now PPD2 from at 39wk 5d -Discharge to home today -Vitals reviewed- HDS, afebrile -Blood type A+, GBS+, RI. PCN given intrapartum -Hgb 11.3, stable -F/u in 6 weeks with OB <Raymond Loo MD - Last Filed: 02/13/22 08:23> (1) Vaginal delivery: Subjective <Bro Arcos MD - Last Filed: 02/13/22 08:20> Ambulation: ambulating normally Voiding: no voiding problems Passing Gas:: Yes Diet Tolerance:: regular diet Lochia:: Small Feeding Type:: breast feeding Current Pain Level(1-10): 5 Pt doing well overall. Reports 5/10 pain around epidural site, relieved with medication. Review of Systems Denies fever/chills. Denies dyspnea, cough. Denies chest pain. Denies breast pain or discharge. Denies dysuria. Denies headache. Denies back pain. Physical Exam <Bro Arcos MD - Last Filed: 02/13/22 08:20> General: Alert, oriented, no acute distress Cardiac: Regular rate and rhythm, normal S1, S2. No murmurs appreciated. Respiratory: Clear to auscultation b/l with good air flow entry, symmetric chest rise and fall. No wheezes or crackles. No increased work of breathing or accessory muscle use Abdomen: Soft, nontender, nondistended. Fundus firm and palpable at 2 cm below umbilicus. No guarding or rebound. Skin: No rashes or lesions Extremities: Warm, dry, well-perfused with capillary refill <2s b/l. No lower extremity edema, erythema, swelling or calf tenderness b/l. Results & Data ([facility]) <Bro Arcos MD - Last Filed: 02/13/22 08:20> Vital Signs (Past 12 Hours) Vital Signs Temp Pulse Pulse Resp BP BP Pulse Ox 02/13/22 00:05 36.4 C L 67 16 125/83 96 02/12/22 19:35 36.8 C 89 89 18 122/78 97 <Raymond Loo MD - Last Filed: 02/13/22 08:23> Co-Signing Physician Notes Patient seen and evaluated with resident and agree with the above findings and plan. Stable for discharge Resident Activity Tracking <Bro Arcos MD - Last Filed: 02/13/22 08:20> Resident Involvement: Resident Care Provided Care Provided: OB Delivery
[2022-02-13 07:11] LABS: Hematocrit (blood only) 34.6 % (37-47); Hemoglobin 11.3 g/dL (12.0-16.0)
[2022-02-13] MEDS: PRENATAL VITAMIN 1 TAB PO SCH (09:05)
[2022-02-13] MEDS: DOCUSATE SODIUM 100 MG CAP PO SCH (09:05)
[2022-02-14] MEDS ORDERED: bisacodyL 10 MG SUPP PR PRN (00:10)
== END 2022-02-13 12:55 | disposition home or self-care (01) | DRG 807 ==
LOC: 4S1 08:07 → 4E2 02-12 01:15